=== PATIENT | female | born 2000 | race Caucasian/White ===

== ENCOUNTER → 2018-03-21 | Outpatient (CLI) | payer OTHER ==
[~2018-03-21] MED LIST: ASPIRIN81 M1 PO; BACTRIM DS 8001 TA1 PO; EES400 MG PO; MOTRIN100 MG/5 M PO; NO DAILY MEDS; PHENERGAN25 M1 PO
[2018-03-21 11:27] LABS: HEMATOCRIT 39.2 % (37.0-47.0); HEMOGLOBIN 12.4 g/dl (12.0-16.0); MEAN CELL VOLUME 87.9 fl (81.0-99.0); MEAN CORPUSCULAR HGB 27.8 pg (27.0-31.0); MEAN CORPUSCULAR HGB CONC 31.6 g/dl (33.0-37.0); MEAN PLATELET VOLUME 9.1 fl (9.6-12.3); RED BLOOD COUNT 4.46 10*6/uL (4.10-5.10); RED CELL DISTRI WIDTH 13.2 % (0-14.5); WHITE BLOOD COUNT 7.5 10*3/uL (4.8-10.8)
[2018-03-21 11:54] LABS: ALBUMIN 3.4 gm/dl (3.1-4.5); ALKALINE PHOSPHATASE 75 U/L (45-117); BUN 8 mg/dl (7-24); CHLORIDE 108 mmol/L (98-107); CHOLESTEROL 213 mg/dL (<200); HDL CHOLESTEROL 42 mg/dl (40-60); LDL CHOLESTEROL 143 mg/dL (9-159); POTASSIUM 3.7 mmol/L (3.5-5.1); SGOT/AST 17 IU/L (3-35); SGPT/ALT 30 U/L (12-78); SODIUM 141 mmol/L (136-145); TOTAL PROTEIN 7.8 gm/dL (6.4-8.2); TRIGLYCERIDES 141 mg/dl (<150); VLDL CHOLESTEROL 28 mg/dL (6-40)
== END | disposition home or self-care (01) ==
LOC: LAB 10:58
PROVIDERS: Family Medicine
DX: F41.1 Generalized anxiety disorder (principal); E74.09 Other glycogen storage disease; D64.9 Anemia, unspecified; R53.83 Other fatigue

== ENCOUNTER → 2018-08-14 | Outpatient (CLI) | payer OTHER ==
[2018-08-15 06:10] LABS: HEPATITIS B SURFACE AB 006395 Non Reactive (.); HEPATITIS B SURFACE AG Negative (Negative)
[2018-08-15 15:08] LABS: RUBEOLA AB IGG 096560 >300.0 AU/mL (Immune >29.9); VARICELLA-ZOSTER IGG 096206 <135 index (Immune >165)
== END | disposition home or self-care (01) ==
LOC: LAB 09:29
PROVIDERS: Family Medicine
DX: Z02.0 Encounter for examination for admission to educational institution (principal)

== ENCOUNTER → 2019-04-10 | Outpatient (CLI) | payer OTHER ==
[2019-04-16 09:50] LABS: HEPATITIS B SURFACE AG Negative (Negative); HEPATITIS C VIRUS ANTIBODY <0.1 s/co (0.0-0.9); VARICELLA-ZOSTER IGG 096206 <135 index (Immune >165)
== END | disposition home or self-care (01) ==
LOC: LAB 10:11
PROVIDERS: Family Medicine
DX: Z02.0 Encounter for examination for admission to educational institution (principal)

== ENCOUNTER → 2019-05-27 | Outpatient (CLI) | payer OTHER ==
[2019-05-28 09:05] LABS: HEPATITIS B SURFACE AB 006395 Reactive (.); HEPATITIS B SURFACE AG Negative (Negative)
[2019-05-28 15:04] LABS: VARICELLA-ZOSTER IGG 096206 1888 index (Immune >165)
== END | disposition home or self-care (01) ==
LOC: LAB 08:57
PROVIDERS: Family Medicine
DX: Z02.0 Encounter for examination for admission to educational institution (principal)